=== PATIENT | male | born 1980 | race Caucasian/White ===

== ENCOUNTER 2019-05-01 10:02 | Emergency (ER) | payer MEDICAID ==
[~2019-05-01] VITALS: Ht 170.2 cm; Wt 69.0 kg
[2019-05-01] MEDS ORDERED: ACETAMINOPHEN 500MG TABLET PO ONE (14:00)
[2019-05-01 15:26] VITALS: BP 136/60
== END 2019-05-01 15:27 | disposition home or self-care (01) ==
LOC: ER 10:02
DX: B34.9 Viral infection, unspecified (principal); H92.09 Otalgia, unspecified ear; I10 Essential (primary) hypertension; R51 Headache; F14.10 Cocaine abuse, uncomplicated; F15.10 Other stimulant abuse, uncomplicated
CPT/HCPCS: 71046; 87804; 99284

== ENCOUNTER 2020-10-09 00:01 | Emergency (ER) | payer MEDICAID ==
[~2020-10-09] VITALS: Ht 182.9 cm; Wt 91.0 kg
[2020-10-09 00:40] VITALS: BP 111/74
[2020-10-09] MEDS ORDERED: ACETAMINOPHEN 325MG TABLET PO ONE (04:00)
[2020-10-09] MEDS ORDERED: ACET-2708 MT (04:03)
== END 2020-10-09 04:33 | disposition home or self-care (01) ==
LOC: ER 00:01
DX: M79.672 Pain in left foot (principal); M79.671 Pain in right foot; I10 Essential (primary) hypertension
CPT/HCPCS: 99282